=== PATIENT | female | born 1990 | race Caucasian/White ===

== ENCOUNTER 2017-09-18 18:00 | Outpatient (CLI) | payer MEDICAID, OTHER ==
[~2017-09-18] VITALS: Ht 152.4 cm; Wt 85.3 kg
[2017-09-18] MEDS ORDERED: PNV11TAB PO (18:56)
[2017-09-18 18:57] VITALS: Ht 152.4 cm; Wt 85.3 kg
[2017-09-18 18:58] VITALS: BP 108/64; PULSE 78; RESP 18
[2017-09-18 20:13] LABS: ADD UMIC YES; UR ASCORBIC ACID NEGATIVE (NEGATIVE); UR BACTERIA FEW /HPF (NONE SEEN); UR BILIRUBIN (Dip) NEGATIVE (NEGATIVE); UR BLOOD (Dip) NEGATIVE (NEGATIVE); UR CLARITY SLIGHTLY CLOUDY (CLEAR); UR COLOR YELLOW (YELLOW); UR GLUCOSE (Dip) NEGATIVE (NEGATIVE); UR KETONES (Dip) NEGATIVE (NEGATIVE); UR LEUKOCYTE ESTERASE (Dip) TRACE Leu/ul (NEGATIVE); UR NITRITE (Dip) NEGATIVE (NEGATIVE); UR RBC 0 /HPF (0-5); UR SPECIFIC GRAVITY (Dip) 1.012 (1.003-1.030); UR SQUAMOUS EPITHELIAL CELL MODERATE /HPF (FEW); UR TOTAL PROTEIN (Dip) NEGATIVE (NEGATIVE); UR UROBILINOGEN (Dip) NEGATIVE (NEGATIVE)
--- NOTE | 2017-09-18 21:06 | RADRPT ---
PROCEDURE: US biophysical profile. CLINICAL INDICATION: Decreased motion. TECHNIQUE: Multiple sonographic images of the uterus were obtained. The images were revi ewed on a PACS workstation. COMPARISON: No prior studies are available for comparison. FINDINGS: There is a single live intrauterine gestation. heart rate is 125 beats per minute. The position is cephalic. The placenta is posterior grade II with no abruption or previa. The INA is 21.2 cm. (Normal = 5-20 cm.) Breathing Movement: 2 Gross Body Movement: 2 Tone: 2 Qualitative Amniotic Fluid Volume: 2 TOTAL: 8 IMPRESSION: 1. The biophysical score is 8/8. RPTAT: QQ .René Toussaint MD, MD Date Time Electronically viewed and signed by .René Toussaint MD, on 09/18/2017 21:06 .R/
--- NOTE | 2017-09-18 21:10 | RADRPT ---
PROCEDURE: Abdominal ultrasound CLINICAL INDICATION: Abdominal pain and distension TECHNIQUE: Axial and longitudinal abebe scale images of the right lower quadrant and left lower patricia drant COMPARISON: None FINDINGS: Directed ultrasound examination of the lower quadrants demonstrate no mass or free fluid. IMPRESSION: Directed ultrasound examination of the lower quadrants demonstrates no free fluid or mass RPTAT: HH .Brown Joseph MD, MD Date Time Electronically viewed and signed by .Brown Joseph MD, on 09/18/2017 21:10 .W/
[2017-09-18] MEDS ORDERED: HYDROCODONE/APAP (5/325) TAB PO ONE (22:00)
--- NOTE | 2017-09-18 23:52 | PN ---
Triage Information Date/Time Sep 18, 2017 Reason for visit: Abd/pelvic pain Weeks of Gestation 34w 3d /Para 4/2 Diabetes: none Hypertention: none Additional information C/O right groin and back pain x 4 days and the pt also fell in the shower today. No bleeding or leaking. PMHx: none. PSHX: Appendectomy. NKDA. Objective Vital Signs Date Time Temp Pulse Resp B/P Pulse Ox O2 Delivery O2 Flow Rate FiO2 09/18/17 18:58 98.2 78 18 108/64 Heart Rate: 130's Heart Rate Comments Accels to 160 bpm. No decels. Contractions: >10 Minutes Apart Results/Medications Results 24 hrs Laboratory Tests Test 09/18/17 18:00 Urine Color YELLOW Urine Clarity SLIGHTLY CLOUDY A Urine pH 7.0 Urine Specific [place] 1.012 Urine Ketones NEGATIVE Urine Nitrite NEGATIVE Urine Bilirubin NEGATIVE Urine Urobilinogen NEGATIVE Urine Leukocyte Esterase TRACE A Urine Microscopic RBC 0 Urine Microscopic WBC 3 Urine Squamous Epithelial Cells MODERATE Urine Bacteria FEW A Urine Hemoglobin NEGATIVE Urine Glucose NEGATIVE Urine Total Protein NEGATIVE Imaging Results BPP 8/8. INA 21.2. VTX. No ovarian cysts seen in the right lower quadrant. Disposition: Discharge Assessment/Plan A: IUP at 34w 3d. Right pelvic and back pain. P: All labs normal. Temple given one tab once Pt felt much better after p.o. hydration and the Temple and was ready for d/c.. ALVA TRUJILLO MD Sep 18, 2017 23:52
== END 2017-09-18 23:52 | disposition home or self-care (01) ==
LOC: OBT 18:00 → L-D 18:01 → OBT 23:52
DX: O26.893 Other specified pregnancy related conditions, third trimester (principal); R10.2 Pelvic and perineal pain; M54.9 Dorsalgia, unspecified; Z3A.34 34 weeks gestation of pregnancy
CPT/HCPCS: 76705; 76818; 81001; Z7610